=== PATIENT | male | born 1990 | race Caucasian/White ===

== ENCOUNTER 2019-04-12 15:39 | Emergency (ER) | payer SELFPAY ==
[~2019-04-12] VITALS: Ht 188 cm; Wt 95.0 kg
[~2019-04-12 15:39] MED LIST: CORTISPORIN OTI10 M1 OT; NO HOME MEDS
[2019-04-12] MEDS ORDERED: AUGMENTIN875TAB PO (16:37)
[2019-04-12 16:44] VITALS: BP 154/87
== END 2019-04-12 16:48 | disposition home or self-care (01) | DRG 605 ==
LOC: ED 15:39
DX: S61.431A Puncture wound without foreign body of right hand, initial encounter (principal); F17.200 Nicotine dependence, unspecified, uncomplicated; W01.118A Fall on same level from slipping, tripping and stumbling with subsequent striking against other sharp object, initial encounter; Y93.89 Activity, other specified; Y92.89 Other specified places as the place of occurrence of the external cause